=== PATIENT | male | born 1990 | race Caucasian/White ===

== ENCOUNTER 2020-09-08 09:21 | Emergency (ER) | payer OTHER ==
[~2020-09-08] VITALS: Ht 188 cm; Wt 81.7 kg
[2020-09-08] MEDS ORDERED: DOXYCYCLINE 10100 M2 PO (09:53)
[2020-09-08 10:03] VITALS: BP 145/88
== END 2020-09-08 10:04 | disposition home or self-care (01) ==
LOC: M.ERS 09:21
DX: K13.0 Diseases of lips (principal); L03.115 Cellulitis of right lower limb